=== PATIENT | male | born 1945 | race Caucasian/White ===

== ENCOUNTER 2021-10-27 09:07 | Emergency (ER) | payer MEDICARE, OTHER, SELFPAY ==
[2021-10-27 09:38] VITALS: BP 149/85; PULSE 96; RESP 18; TEMP 37.2; O2SAT 96; BMI 25.8
[2021-10-27 11:03] LABS: BUN Creatinine Ratio 15.7 (6-22); Blood Urea Nitrogen 16 mg/dL (9-20); Calcium 9.1 mg/dL (8.4-10.2); Carbon Dioxide 24 mmol/L (22-32); Chloride 105 mmol/L (98-107); Estimated Glomerular Filt Rate > 60 mL/min (>60); Glucose 102 mg/dL (80-110); HEMOLYSIS < 15 (0-50); Potassium 4.5 mmol/L (3.4-5.1); Sodium 136 mmol/L (137-145)
--- NOTE | 2021-10-27 11:36 | ED_ITS ---
HPI - URI/Sore Throat General Chief Complaint: Upper Respiratory Symptoms Stated Complaint: COVID+ wants meds Time Seen by Provider: 10/27/21 10:22 Source: patient Mode of arrival: Family Vehicle History of Present Illness HPI Narrative: Patient is a 76-year-old male history of hyperlipidemia presents today with positive COVID test and wanting medication. I states he started having symptoms last night he had some body aches fevers chills minimal sore throat no chest pain or shortness of breath. He took a test this morning he is positive. Related Data Previous Rx's Medication Instructions Recorded nirmatrelvir 300 mg (150 mg x See Rx Instructions PO .COMPLEX 10/27/21 2)-ritonavir 100 mg tablet (EUA) #30 tabs (Paxlovid 300 mg () Allergies Allergy/AdvReac Type Severity Reaction Status Date / Time guaifenesin Allergy Hives Verified 10/27/21 09:41 Review of Systems Review of Systems Narrative: GENERAL: See HPI HEENT: Denies throat pain RESPIRATORY: Denies dyspnea, cough, wheezing CARDIOVASCULAR: Denies chest pain, palpitations GASTROINTESTINAL: Denies nausea, vomiting MUSCULOSKELETAL: Denies extremity pain, injury SKIN: No rash, no laceration, no pruritus NEUROLOGIC: Denies weakness, dizziness, headache, numbness 8 point review of systems is negative except for those stated above and HPI Patient History Social History Smoking Status: Never smoker Smoking Status: Never smoker alcohol intake frequency: 0-2 drinks per day Substance Use Type: does not use Exam Initial Vital Signs Initial Vital Signs: Vital Signs Temperature 98.9 F 10/27/21 09:38 Pulse Rate 96 H 10/27/21 09:38 Respiratory Rate 18 10/27/21 09:38 Blood Pressure 149/85 H 10/27/21 09:38 Pulse Oximetry 96 10/27/21 09:38 Oxygen Delivery Method 10/27/21 09:38 GENERAL: Alert 76-year-old with and in no acute distress. HEENT: Head atraumatic,EOMI, pupils reactive, face symmetric, moist mucous membranes CARDIOVASCULAR: Regular rate and rhythm without murmurs, rubs or gallops. RESPIRATORY: Breath sounds equal bilaterally, no wheezes rales or rhonchi. EXTREMITIES: Normal range of motion, no clubbing or edema. Neurovascularly intact NEUROLOGICAL: Alert and oriented x4. SKIN: Warm, dry, no laceration, no petechiae, no rashes or lesions. Course Orders Ordered: ED Orders 10/27/21 09:45 BMP [Basic Metabolic Panel] Stat Vital Signs Vital signs: Vital Signs - 8 hr 10/27/21 09:38 Temperature 98.9 F Pulse Rate 96 H Respiratory Rate 18 Blood Pressure 149/85 H Pulse Oximetry 96 Oxygen Delivery Method Room Air MDM - URI/Sore Throat Lab Data Result diagrams: 10/27/21 09:45 Labs: Lab Results 10/27/21 Range/Units 09:45 Sodium 136 L (137-145) mmol/L Potassium 4.5 (3.4-5.1) mmol/L Chloride 105 (98-107) mmol/L Carbon Dioxide 24 (22-32) mmol/L BUN 16 (9-20) mg/dL Creatinine 1.02 (0.66-1.25) mg/dL Estimated GFR > 60 (>60) mL/min BUN/Creatinine Ratio 15.7 (6-22) Glucose 102 (80-110) mg/dL Calcium 9.1 (8.4-10.2) mg/dL MDM Narrative Medical decision making narrative: Patient overall appears well. He has risks factors of advanced age and hyperl ipidemia. Instructed him not to take is statin medication Discharge Plan Departure Patient Disposition: Home Clinical Impression: COVID-19 Instructions: DI for COVID-19 (Suspected or Confirmed ) Activity Restrictions/Additional Instructions: *You have been diagnosed with COVID-19 *What to do: Please monitor your oxygen level. Make sure that it is staying above 91% be sure to hydrate and treat fever as needed *Continue to take medications as directed Paxlovid take as directed, may start tomorrow (hold statin while taking it then restart statin once you are done with medication) *Follow up with your primary care provider in 2-3 days or call [phone] *Return to ER if you should have increasing chest pain, shortness of breath oxygen (91% or any new, worsening or concerning symptoms Prescriptions: New Paxlovid (EUA) 150 mg x 2- 100 mg tablet See Rx Instructions PO .COMPLEX Qty: 30 0RF Rx Instructions: take TWO 150 mg tablets of nirmatrelvir with ONE 100 mg tablet of ritonavir twice daily for 5 days Visit Report Forms: Patient Portal/API
== END 2021-10-27 11:58 | disposition home or self-care (01) ==
PROVIDERS: Emergency Provider Emergency Medicine
DX: U07.1 COVID-19 (principal); E78.5 Hyperlipidemia, unspecified
CPT/HCPCS: 36415; 80048; 99281; 99283